=== PATIENT | female | born 1985 | race Caucasian/White ===

== ENCOUNTER 2018-11-24 21:33 | Emergency (ER) | payer MEDICAID ==
[~2018-11-24] VITALS: Ht 162.6 cm; Wt 103.0 kg
[2018-11-24 22:21] VITALS: Ht 162.6 cm; Wt 103.0 kg
[2018-11-24 23:58] VITALS: BP 128/86
== END 2018-11-24 23:58 | disposition home or self-care (01) ==
LOC: ED 21:33
DX: S93.402A Sprain of unspecified ligament of left ankle, initial encounter (principal); X58.XXXA Exposure to other specified factors, initial encounter; Y93.89 Activity, other specified; Y92.89 Other specified places as the place of occurrence of the external cause; Y99.8 Other external cause status
CPT/HCPCS: J1885

== ENCOUNTER 2018-11-25 08:41 | Emergency (ER) | payer MEDICAID ==
[~2018-11-25] VITALS: Ht 162.6 cm; Wt 103.0 kg
[2018-11-25 08:42] VITALS: BP 159/93; Ht 162.6 cm; Wt 103.0 kg
== END 2018-11-25 09:32 | disposition home or self-care (01) ==
LOC: ED 08:41
DX: S82.832A Other fracture of upper and lower end of left fibula, initial encounter for closed fracture (principal); Z98.890 Other specified postprocedural states; X58.XXXA Exposure to other specified factors, initial encounter; Y93.89 Activity, other specified; Y92.89 Other specified places as the place of occurrence of the external cause; Y99.8 Other external cause status